=== PATIENT | female | born 1975 ===

== ENCOUNTER 2018-02-07 07:02 | Emergency (ER) | payer SELFPAY ==
--- NOTE | 2018-02-07 07:37 | C.PDOC ---
History Of Present Illness Patient with complaints of upper mouth and dental pain for 3 days. Patient usually wears bridge, but has not been able to secondary to pain. She is from [place] and took Ampicillin and ibuprofen without improvement. Time Seen by Provider: 02/07/18 07:31 Chief Complaint (Nursing): Dental Pain History Per: Patient History/Exam Limitations: no limitations Onset/Duration Of Symptoms: Days Current Symptoms Are (Timing): Still Present Severity: Moderate Past Medical History Reviewed: Historical Data, Nursing Documentation, Vital Signs Vital Signs: Last Vital Signs Temp 98.7 F 02/07/18 07:20 Pulse 94 H 02/07/18 07:20 Resp 17 02/07/18 07:20 BP 131/89 02/07/18 07:20 Pulse Ox 97 02/07/18 07:40 - Medical History PMH: No Chronic Diseases Other Surgeries: Hx of surgeries Family History: States: No Known Family Hx - Social History Hx Alcohol Use: No Hx Substance Use: No - Immunization History Hx Tetanus Toxoid Vaccination: No Hx Influenza Vaccination: Yes (2017) Hx Pneumococcal Vaccination: No Review Of Systems Except As Marked, All Systems Reviewed And Found Negative. Constitutional: Negative for: Fever, Chills ENT: Positive for: Mouth Pain Physical Exam - Physical Exam Appears: Non-toxic, No Acute Distress Skin: Normal Color, Warm, Dry Head: Atraumatic, Normacephalic Eye(s): bilateral: Normal Inspection Nose: Normal Oral Mucosa: Moist Teeth: Normal Dentition (fair) Gingiva: Swelling (upper central gingival swelling), No Bleeding, No Abscess Neck: Supple Chest: Symmetrical Cardiovascular: Rhythm Regular Respiratory: Normal Breath Sounds, No Rales, No Rhonchi, No Wheezing Neurological/Psych: Oriented x3, Normal Speech ED Course And Treatment O2 Sat by Pulse Oximetry: 97 Medical Decision Making Medical Decision Making: Patient with complaints of mouth pain, usually wears bridge and on exam has gingival swelling, no abscess or bleeding and fair dentition. Will treat with antibiotic and instruct to follow up with Dentist. Disposition Counseled Patient/Family Regarding: Diagnosis, Need For Followup, Rx Given - Disposition Referrals: [facility] [Outside] Disposition: HOME/ ROUTINE Disposition Time: 07:35 Condition: STABLE Additional Instructions: Cesar un seguimiento con un dentista en la clnica Prescriptions: Acetaminophen with Codeine [Tylenol with Codeine No. 3 300 mg-30 mg] 1 tab PO Q8 PRN #20 tab PRN Reason: Pain, Moderate (4-7) Amoxicillin/Clavulanate [Augmentin 875 MG-125 MG] 1 tab PO BID #14 tab Instructions: Gingivitis (DC) Forms: [employer] (Sami) Print Language: CYMRO - POA Present On Arrival: None - Clinical Impression Clinical Impression: Gingivitis - PA / FANCY NEEDLEWORKER / Resident Statement MD/DO has reviewed & agrees with the documentation as recorded. - Scribe Statement The provider has reviewed the documentation as recorded by the Marion Davis Provider Attestation All medical record entries made by the Marion were at my direction and personally dictated by me. I have reviewed the chart and agree that the record accurately reflects my personal performance of the history, physical exam, medical decision making, and the department course for this patient. I have also personally directed, reviewed, and agree with the discharge instructions and disposition.
[2018-02-07 07:42] VITALS: BP 131/89; PULSE 94; RESP 17; TEMP 98.7; O2SAT 97; BMI 27.8
[2018-02-07] MEDS ORDERED: Acetaminophen-Codeine 300/30 mg Tab PO ONE ×2 (07:59→08:00)
[2018-02-07] MEDS ORDERED: Amoxicillin-Clav 875-125 mg Tab PO ONE ×2 (08:00)
== END 2018-02-07 08:10 | disposition home or self-care (01) ==
LOC: C.ER 07:02
DX: K05.10 Chronic gingivitis, plaque induced (principal)

== ENCOUNTER 2018-07-01 09:31 | Outpatient (CLI) | payer OTHER | END 2018-07-01 09:32 | disposition home or self-care (01) | LOC: C.CARD 09:31 ==

== ENCOUNTER 2018-07-22 16:15 | Emergency (ER) | payer OTHER ==
[2018-07-22 16:16] VITALS: BMI 27.8
--- NOTE | 2018-07-22 17:10 | C.PDOC ---
History Of Present Illness 43 year old female with a history of kidney infection presents to the ED for evaluation of suprapubic pain and lower back pain that began today in the morning associated with chills. The patient reports pain with urination. She notes having discharge and bleeding after a pap smear on 07.18.18. Denies nausea, vomiting, and any other associated symptoms. <Paris Bunch - Last Filed: 07/22/18 19:05> History Per: Patient History/Exam Limitations: no limitations Onset/Duration Of Symptoms: Hrs Current Symptoms Are (Timing): Still Present Recent travel outside of the [place]: No <Paris Bunch - Last Filed: 07/22/18 19:05> <Louisa Lopez - Last Filed: 07/22/18 20:08> Time Seen by Provider: 07/22/18 16:34 Chief Complaint (Nursing): Female Genitourinary Past Medical History Reviewed: Historical Data, Nursing Documentation, Vital Signs Vital Signs: Last Vital Signs Temp 99.1 F 07/22/18 16:35 Pulse 96 H 07/22/18 16:35 Resp 16 07/22/18 16:35 BP 120/84 07/22/18 16:35 Pulse Ox 99 07/22/18 16:35 Family History: States: Unknown Family Hx - Social History Hx Alcohol Use: No Hx Substance Use: No - Immunization History Hx Tetanus Toxoid Vaccination: No Hx Influenza Vaccination: Yes (2016) Hx Pneumococcal Vaccination: No <Paris Bunch - Last Filed: 07/22/18 19:05> Vital Signs: Last Vital Signs Temp 99.1 F 07/22/18 16:35 Pulse 96 H 07/22/18 16:35 Resp 16 07/22/18 16:35 BP 120/84 07/22/18 16:35 Pulse Ox 99 07/22/18 19:06 <Louisa Lopez - Last Filed: 07/22/18 20:08> Review Of Systems Except As Marked, All Systems Reviewed And Found Negative. Constitutional: Positive for: Chills Gastrointestinal: Positive for: Abdominal Pain (suprapubic pain.). Negative for: Nausea, Vomiting Musculoskeletal: Positive for: Back Pain (lower.) <Paris Bunch - Last Filed: 07/22/18 19:05> Physical Exam - Physical Exam Appears: Non-toxic, No Acute Distress Skin: Warm, Dry Head: Atraumatic, Normacephalic Eye(s): bilateral: Normal Inspection Oral Mucosa: Moist Neck: Normal ROM, Supple Chest: Symmetrical, No Deformity Cardiovascular: Rhythm Regular, No Murmur Respiratory: Normal Breath Sounds, No Rales, No Rhonchi, No Wheezing Gastrointestinal/Abdominal: Normal Exam, Soft, No Tenderness Extremity: Bilateral: Atraumatic, Normal Color And Temperature, Normal ROM Neurological/Psych: Oriented x3, Normal Speech, Normal Cognition <Paris Bunch - Last Filed: 07/22/18 19:05> ED Course And Treatment O2 Sat by Pulse Oximetry: 99 (RA) Pulse Ox Interpretation: Normal <Paris Bunch - Last Filed: 07/22/18 19:05> - Laboratory Results Lab Results: Urine Color Yellow (YELLOW) 07/22/18 16:45 Urine Clarity Clear (Clear) 07/22/18 16:45 Urine pH 6.0 (5.0-8.0) 07/22/18 16:45 Ur Specific [place] 1.013 (1.003-1.030) 07/22/18 16:45 Urine Protein Negative mg/dL (NEGATIVE) 07/22/18 16:45 Urine Glucose (UA) Negative mg/dL (Normal) 07/22/18 16:45 Urine Ketones Negative mg/dL (NEGATIVE) 07/22/18 16:45 Urine Blood Negative (NEGATIVE) 07/22/18 16:45 Urine Nitrate Negative (NEGATIVE) 07/22/18 16:45 Urine Bilirubin Negative (NEGATIVE) 07/22/18 16:45 Urine Urobilinogen Normal mg/dL (0.2-1.0) 07/22/18 16:45 Ur Leukocyte Esterase Negative Korina/uL (Negative) 07/22/18 16:45 Urine WBC (Auto) 3 /hpf (0-5) 07/22/18 16:45 Urine RBC (Auto) 1 /hpf (0-3) 07/22/18 16:45 Ur Squamous Epith Cells 4 /hpf (0-5) 07/22/18 16:45 Urine HCG, Qual Negative (NEGATIVE) 07/22/18 16:45 Urine HCG, Qual Negative (NEGATIVE) 07/22/18 16:45 Reevaluation Time: 20:06 Reassessment Condition: Improved ([facility] REPORT REVIEWED. [facility]) <Louisa Lopez - Last Filed: 07/22/18 20:08> Medical Decision Making Medical Decision Making: Initial plan: -Urine culture -HCG Urine -Urinalysis <Paris Bunch - Last Filed: 07/22/18 19:05> Disposition - Disposition Disposition Time: 19:06 <Paris Bunch - Last Filed: 07/22/18 19:05> Counseled Patient/Family Regarding: Studies Performed, Diagnosis, Need For Followup, Rx Given - Disposition Disposition Time: 20:07 <Louisa Lopez - Last Filed: 07/22/18 20:08> - Disposition Referrals: [facility] [Outside] [facility] [Outside] Disposition: HOME/ ROUTINE Condition: IMPROVED Prescriptions: Ibuprofen [Motrin] 600 mg PO Q6 #30 tab Instructions: Acute Pelvic Pain (DC) Forms: [employer] (Iraqi) - Clinical Impression Clinical Impression: Pelvic pain - Scribe Statement The provider has reviewed the documentation as recorded by the Scribe (Aileen Schumacher) All medical record entries made by the Scribe were at my direction and personally dictated by me. I have reviewed the chart and agree that the record accurately reflects my personal performance of the history, physical exam, medical decision making, and the department course for this patient. I have also personally directed, reviewed, and agree with the discharge instructions and disposition. <Paris Bunch - Last Filed: 07/22/18 19:05> Physician Patient Turnover Patient Signed Over To: Louisa Lopez Handoff Comments: Pending ultrasound <Paris Bunch - Last Filed: 07/22/18 19:05>
[2018-07-22 17:42] LABS: URINE BILIRUBIN NEGATIVE (NEGATIVE); URINE CLARITY Clear (Clear); URINE COLOR YELLOW (YELLOW); URINE GLUCOSE (UA) NEGATIVE (Normal)
[2018-07-22 17:43] LABS: HCG,QUALITATIVE URINE NEGATIVE (NEGATIVE); SQUAMOUS EPITHIAL 4 /hpf (0-5); URINE BLOOD NEGATIVE (NEGATIVE); URINE LEUKOCYTE ESTERASE NEGATIVE Leu/uL (Negative); URINE PROTEIN NEGATIVE (NEGATIVE); URINE UROBILINOGEN Normal mg/dL (0.2-1.0)
[2018-07-22] MEDS ORDERED: cefTRIAXone 250 MG, Lidocaine Hydrochloride 1% 1 ML IM ONE (18:46)
[2018-07-22 20:27] VITALS: BP 100/69; PULSE 85; RESP 20; TEMP 98; O2SAT 100
--- NOTE | 2018-07-23 17:43 | US ---
Date of service: 07/22/2018 PROCEDURE: Pelvic ultrasound HISTORY: Right ovarian pain, r/o torsion COMPARISON: No prior study available for comparison TECHNIQUE: Transvaginal sonographic evaluation of the pelvis performed. FINDINGS: The uterus measures 8.3 x 4.4 x 4.5 cm. Uterus is retroverted... Endometrium is somewhat thickened measuring 1.1 cm. This could be due to secretory phase of the endometrial cycle and therefore repeat sonography during the next menstrual cycle shortly following cessation of menses recommended. However, consider follow-up line assembly utility worker consultation if this patient is postmenopausal. Nabothian cysts are present the largest measuring approximately 1.3 cm. Right ovary measures 2.8 x 1.8 x 2.9 cm. The right ovary exhibits arterial flow. Left ovary measures 2.7 x 1.5 x 1.7 cm and also exhibits arterial flow. IMPRESSION: Slightly thickened endometrium at 1.1 cm. This could be due to secretory phase of the endometrial cycle and therefore repeat sonography during the next menstrual cycle shortly following cessation of menses recommended. However, consider follow-up line assembly utility worker consultation if this patient is postmenopausal This report was placed in PA review folder for follow up
== END 2018-07-22 20:26 | disposition home or self-care (01) ==
LOC: C.ER 16:15
DX: R10.2 Pelvic and perineal pain (principal)
CPT/HCPCS: 76830; 76856; 81001; 84703; 87086; 87491; 87591; 96372; 99284; J0696; J1885

== ENCOUNTER 2018-07-28 10:17 | Outpatient (CLI) | payer SELFPAY, OTHER | END 2018-07-28 10:18 | disposition home or self-care (01) | LOC: C.MAMMO 10:17 | DX: Z12.31 Encounter for screening mammogram for malignant neoplasm of breast (principal) ==

== ENCOUNTER 2018-08-17 10:36 | Outpatient (CLI) | payer SELFPAY | END 2018-08-17 10:37 | disposition home or self-care (01) | LOC: C.MAMMO 10:36 ==